=== PATIENT | female | born 1955 | race Caucasian/White ===

== ENCOUNTER 2018-05-09 09:03 | Day surgery (SDC) | payer BC ==
[2018-05-09 10:49] LABS: EOS # 0.1 K/uL (0.0-0.7); EOS % 2.7 % (0.0-4.0); HEMOGLOBIN 14.6 g/dL (11.0-16.0); LYMPH # 1.9 K/uL (1.0-4.3); LYMPH % 38.2 % (20.0-40.0); MEAN CELL VOLUME 84.3 fL (81.0-99.0); MEAN CORPUSCULAR HEMOGLOBIN 27.4 pg (27.0-31.0); MEAN CORPUSCULAR HGB CONC 32.5 g/dL (33.0-37.0); MEAN PLATELET VOLUME 8.2 fL (7.2-11.7); MONO # 0.4 K/uL (0.0-0.8); MONO % 8.9 % (0.0-10.0); NEUT # 2.4 K/uL (1.8-7.0); NEUT % 49.2 % (50.0-75.0); NRBC % 0.1 % (0.0-2.0); RBC 5.32 Mil/uL (3.80-5.20); RED CELL DISTRIBUTION WIDTH 14.4 % (11.5-14.5); WHITE BLOOD COUNT 4.9 K/uL (4.8-10.8)
[2018-05-09 10:56] LABS: PROTHROMBIN TIME 11.3 SECONDS (9.7-12.2)
[2018-05-09 11:00] LABS: SQUAMOUS EPITHIAL 2 /hpf (0-5); URINE BACTERIA OCC (<OCC); URINE BILIRUBIN NEGATIVE (NEGATIVE); URINE BLOOD 3+ (NEGATIVE); URINE CLARITY Hazy (Clear); URINE COLOR Amber (YELLOW); URINE GLUCOSE (UA) NORMAL (Normal); URINE LEUKOCYTE ESTERASE NEG Leu/uL (Negative); URINE PROTEIN 2+ mg/dL (NEGATIVE); URINE UROBILINOGEN NORMAL mg/dL (0.2-1.0)
[2018-05-09 11:03] LABS: ALB/GLOB RATIO 1.5 (1.0-2.1); ALBUMIN 4.7 g/dL (3.5-5.0); ALT/SGPT 25 U/L (9-52); AST/SGOT 31 U/L (14-36); BLOOD UREA NITROGEN 16 mg/dL (7-17); CALCIUM 9.3 mg/dl (8.6-10.4); GFR NON-AFRICAN AMERICAN > 60
--- NOTE | 2018-05-09 12:25 | CT ---
Date of service: 05/09/2018 PROCEDURE: CT Abdomen and Pelvis without intravenous contrast HISTORY: hematuria COMPARISON: Not available TECHNIQUE: Without contrast.. Contrast dose: 0 Radiation dose: Total exam DLP = 1194.61 mGy-cm. This CT exam was performed using one or more of the following dose reduction techniques: Automated exposure control, adjustment of the mA and/or kV according to patient size, and/or use of iterative reconstruction technique. FINDINGS: LOWER THORAX: Unremarkable. LIVER: Normal size, contour and attenuation. Nonspecific 12 mm ovoid low-attenuation mass in the medial segment left hepatic lobe common nonspecific. No biliary dilatation. GALLBLADDER AND BILE DUCTS: Unremarkable. PANCREAS: Unremarkable. No gross lesion or ductal dilatation. SPLEEN: Unremarkable. ADRENALS: Unremarkable. No mass. KIDNEYS AND URETERS: No mass, calculus or hydronephrosis. No hydroureter or ureteral calculus. VASCULATURE: Unremarkable. No aortic aneurysm. There is mild atherosclerotic calcification of the abdominal aorta. BOWEL: Mild sigmoid diverticulosis without evidence of diverticulitis. No bowel obstruction. No other abnormal bowel loops. APPENDIX: Unremarkable. Normal appendix. PERITONEUM: Unremarkable. No free fluid. No free air. LYMPH NODES: No retroperitoneal or pelvic lymphadenopathy. There are numerous shotty subcentimeter nodes in the small bowel mesenteric, nonspecific. Few shotty subcentimeter nodes are also seen medial to the cecum/ascending colon. Findings may reflect mesenteric adenitis. BLADDER: Unremarkable. REPRODUCTIVE: Prior hysterectomy. BONES: No acute fracture. OTHER FINDINGS: None. IMPRESSION: No evidence of urinary calculus or urinary tract obstruction. Shotty lymph nodes in the small bowel mesenteric and medial to the cecum/ascending colon. Nonspecific though this may reflect mesenteric adenitis. Incidental 12 mm ovoid low-attenuation mass in the medial segment of the left hepatic lobe. No other significant abnormality.
--- NOTE | 2018-05-09 13:15 | C.PDOC ---
History Of Present Illness 63 y/o female presents to the ED with complaints of hematuria for 1 week. She called her urologist, who referred patient to the ED for evaluation. Otherwise patient denies any dysuria, frequency, urinary incontinence, abdominal pain, nausea, vomiting, or diarrhea. Patient has no fevers or chills. Time Seen by Provider: 05/09/18 09:55 Chief Complaint (Nursing): Female Genitourinary History Per: Patient History/Exam Limitations: no limitations Onset/Duration Of Symptoms: Days (x6) Current Symptoms Are (Timing): Still Present Associated Symptoms: Urinary Symptoms Abnormal Vaginal Bleeding: No Past Medical History Reviewed: Historical Data, Nursing Documentation, Vital Signs Vital Signs: Last Vital Signs Temp 98.3 F 05/09/18 13:09 Pulse 88 05/09/18 13:09 Resp 18 05/09/18 13:09 BP 107/65 05/09/18 13:09 Pulse Ox 100 05/09/18 13:09 - Medical History PMH: HTN Other Surgeries: Partial hysterectomy, Breast fibroid removal Family History: States: Unknown Family Hx - Social History Hx Alcohol Use: No Hx Substance Use: No - Immunization History Hx Tetanus Toxoid Vaccination: Yes Hx Influenza Vaccination: Yes Hx Pneumococcal Vaccination: Yes Review Of Systems Except As Marked, All Systems Reviewed And Found Negative. Constitutional: Negative for: Fever, Chills Cardiovascular: Negative for: Chest Pain Respiratory: Negative for: Shortness of Breath Gastrointestinal: Negative for: Nausea, Vomiting, Abdominal Pain, Diarrhea Genitourinary: Positive for: Hematuria. Negative for: Dysuria, Frequency, Incontinence, Pelvic Pain Musculoskeletal: Negative for: Back Pain Neurological: Negative for: Weakness, Numbness Physical Exam - Physical Exam Appears: Non-toxic, No Acute Distress Skin: Normal Color, Warm Head: Atraumatic, Normacephalic Eye(s): bilateral: Normal Inspection, PERRL, EOMI Oral Mucosa: Moist Neck: Normal ROM Chest: Symmetrical Cardiovascular: Rhythm Regular, No Murmur Respiratory: Normal Breath Sounds, No Accessory Muscle Use, Other (No respiratory distress) Gastrointestinal/Abdominal: Soft, No Tenderness, No Distention Extremity: Bilateral: Atraumatic, Normal Color And Temperature Neurological/Psych: Oriented x3, Normal Speech ED Course And Treatment - Laboratory Results Result Diagrams: 05/09/18 10:40 05/09/18 10:40 Lab Results: PT 11.3 SECONDS (9.7-12.2) 05/09/18 10:40 INR 1.0 05/09/18 10:40 APTT 33 SECONDS (21-34) 05/09/18 10:40 Total Bilirubin 0.8 mg/dL (0.2-1.3) 05/09/18 10:40 AST 31 U/L (14-36) 05/09/18 10:40 ALT 25 U/L (9-52) 05/09/18 10:40 Alkaline Phosphatase 101 U/L (38-126) 05/09/18 10:40 Total Protein 7.8 g/dL (6.3-8.3) 05/09/18 10:40 Albumin 4.7 g/dL (3.5-5.0) 05/09/18 10:40 Globulin 3.1 gm/dL (2.2-3.9) 05/09/18 10:40 Albumin/Globulin Ratio 1.5 (1.0-2.1) 05/09/18 10:40 Urine Color Erinn (YELLOW) 05/09/18 10:40 Urine Clarity Hazy (Clear) 05/09/18 10:40 Urine pH 6.0 (5.0-8.0) 05/09/18 10:40 Ur Specific [place] 1.018 (1.003-1.030) 05/09/18 10:40 Urine Protein 2+ mg/dL (NEGATIVE) H 05/09/18 10:40 Urine Glucose (UA) Normal mg/dL (Normal) 05/09/18 10:40 Urine Ketones Negative mg/dL (NEGATIVE) 05/09/18 10:40 Urine Blood 3+ (NEGATIVE) H 05/09/18 10:40 Urine Nitrate Negative (NEGATIVE) 05/09/18 10:40 Urine Bilirubin Negative (NEGATIVE) 05/09/18 10:40 Urine Urobilinogen Normal mg/dL (0.2-1.0) 05/09/18 10:40 Ur Leukocyte Esterase Neg Lupe/uL (Negative) 05/09/18 10:40 Urine WBC (Auto) 7 /hpf (0-5) H 05/09/18 10:40 Urine RBC (Auto) 1133 /hpf (0-3) H 05/09/18 10:40 Ur Squamous Epith Cells 2 /hpf (0-5) 05/09/18 10:40 Urine Bacteria Occ (<OCC) H 05/09/18 10:40 O2 Sat by Pulse Oximetry: 100 (RA) Pulse Ox Interpretation: Normal - CT Scan/US CT Abdomen/Pelvis Other Rad Studies (CT/US): Read By Radiologist, Radiology Report Reviewed CT/US Interpretation: Accession No. : [id number]. Patient Name / ID : KAMI BHAT / [id number]. Exam Date : 05/09/2018 11:43:08 ( Approved ). Study Comment : Sex / Age : F / 63Y. Creator : Marvin Painter MD. Dictator : Marvin Painter MD. Well Service Derrick Worker : First Front Ventilator : Marvin Painter MD. Approver2 : Report Date : 05/09/2018 12:21:47. My Comment : . Date of service: 05/09/2018. PROCEDURE: CT Abdomen and Pelvis without intravenous contrast. HISTORY: hematuria. COMPARISON: Not available. TECHNIQUE: Without contrast.. Contrast dose: 0. Radiation dose: Total exam DLP = 1194.61 mGy-cm. This CT exam was performed using one or more of the following dose reduction techniques: Automated exposure control, adjustment of the mA and/or kV according to patient size, and/or use of iterative reconstruction technique. FINDINGS: LOWER THORAX: Unremarkable. LIVER: Normal size, contour and attenuation. Nonspecific 12 mm ovoid low-attenuation mass in the medial segment left hepatic lobe common nonspecific. No biliary dilatation. GALLBLADDER AND BILE DUCTS: Unremarkable. PANCREAS: Unremarkable. No gross lesion or ductal dilatation. SPLEEN: Unremarkable. ADRENALS: Unremarkable. No mass. KIDNEYS AND URETERS: No mass, calculus or hydronephrosis. No hydroureter or ureteral calculus. VASCULATURE: Unremarkable. No aortic aneurysm. There is mild atherosclerotic calcification of the abdominal aorta. BOWEL: Mild sigmoid diverticulosis without evidence of diverticulitis. No bowel obstruction. No other abnormal bowel loops. APPENDIX: Unremarkable. Normal appendix. PERITONEUM: Unremarkable. No free fluid. No free air. LYMPH NODES: No retroperitoneal or pelvic lymphadenopathy. There are numerous shotty subcentimeter nodes in the small bowel mesenteric, nonspecific. Few shotty subcentimeter nodes are also seen medial to the cecum/ascending colon. Findings may reflect mesenteric adenitis. BLADDER: Unremarkable. REPRODUCTIVE: Prior hysterectomy. BONES: No acute fracture. OTHER FINDINGS: None. IMPRESSION: No evidence of urinary calculus or urinary tract obstruction. Shotty lymph nodes in the small bowel mesenteric and medial to the cecum/ascending colon. Nonspecific though this may reflect mesenteric adenitis. Incidental 12 mm ovoid low-attenuation mass in the medial segment of the left hepatic lobe. No other significant abnormality. Medical Decision Making Medical Decision Making: Initial Plan: --CMP, CBC, coags --Blood type/screen --UA, Urine culture --CT Abdomen/Pelvis ordered w/wo contrast Progress/Updates: Labs reviewed. 12:[address] Speedy Clark, patient accepted for admission for same day surgery. Disposition - Disposition Disposition: HOSPITALIZED Disposition Time: 13:00 Condition: STABLE - Clinical Impression Clinical Impression: Hematuria - Scribe Statement The provider has reviewed the documentation as recorded by the Murali Etienne Provider Attestation: All medical record entries made by the Murali were at my direction and personally dictated by me. I have reviewed the chart and agree that the record accurately reflects my personal performance of the history, physical exam, medical decision making, and the department course for this patient. I have also personally directed, reviewed, and agree with the discharge instructions and disposition. Decision To Admit - Pt Status Changed To: Hospital Disposition Of: SDS- Endo,OR,Cath,IR - . Bed Request Type: Same Day Surgery Admitting Physician: Bridger Clark Patient Diagnosis: Hematuria
[2018-05-09] MEDS ORDERED: HYDROmorphone 0.5 mg/0.5 ml ISec IVP PRN (15:50)
[2018-05-09] MEDS ORDERED: Iohexol 240 (50 ml) ONE (16:09)
[2018-05-09] MEDS ORDERED: cefTRIAXone 1 gm 1 GM/100 ML BAG IVPB ONE (16:09)
[2018-05-09] MEDS ORDERED: Midazolam 2 MG/2 ML VIAL ONE (16:11)
[2018-05-09] MEDS ORDERED: Propofol 10 mg/ml Inj (20 ML) ONE ×2 (16:12→16:38)
[2018-05-09] MEDS ORDERED: Iodixanol 320 MG/ML 200 ML BOTTLE IV ONE (16:34)
[2018-05-09 18:40] VITALS: BP 136/70; PULSE 89; RESP 18; TEMP 98; O2SAT 100
--- NOTE | 2018-05-10 15:05 | RAD ---
Date of service: 05/09/2018 PROCEDURE: Intraoperative fluoroscopy HISTORY: HEMATURIA LEFT KIDNEY COMPARISON: Not available TECHNIQUE: Intraoperative fluoroscopy was provided for bilateral retrograde pyelo ureteral atrophy total time of fluoroscopy was 21.7 sec. Cumulative dose was 0.53861 mGy meter squared. FINDINGS: Multiple fluoroscopic spot films are submitted demonstrating retrograde opacification of the ureters and pelvicaliceal system of both kidneys. IMPRESSION: Fluoroscopy provided.
--- NOTE | 2018-05-23 06:04 | OP ---
PROCEDURE DATE: 05/09/2018 PREOPERATIVE DIAGNOSIS: Gross hematuria and voiding dysfunction. POSTOPERATIVE DIAGNOSIS: Gross hematuria and voiding dysfunction, no evidence of bleeding in the bladder, but significant evidence that there is bleeding from the left urethral orifice. PROCEDURES: Exam under anesthesia, cystoscopy, bilateral retrograde pyelogram. COMPLICATIONS: There were no complications. UROLOGY OPERATIVE FINDINGS: 1. Normal bladder mucosa. 2. There is gross blood from the left kidney. 3. Right kidney none. 4. Retrograde pyelogram despite the fact that I see blood physically from the left kidney, I do not see any filling defect or source of bleeding. I do not see any . I do not see any signs of NAD malformation. I do not see any abnormality, I do not even see papillary necrosis (see below my addendum and my plan and recommendations). Of significant note, I just want to put in the chart that, as I am dictating now, I remember the patient extremely well on I'm just in medical records going through the records. The procedure itself was done on 05/09/2018 and I dictated at the time, much of this got cut off or whatever from a phone call. But it is very fresh in my mind. INDICATIONS: See history and physical for further detail. A very pleasant lady who presented with gross hematuria. I saw and immediately brought into the hospital as quickly as possible. She has the same history 10 years ago and then it just stopped bleeding spontaneously and it was never resolved according to her where she presented with gross hematuria. So when we spoke to her, we brought her into the hospital as quickly as possible for the above listed procedure, which is the exam under anesthesia cystoscopy, and retrograde pyelogram. See my addendum at the end. DESCRIPTION OF PROCEDURE: After obtaining informed consent, the patient was placed on the table. Routine monitors were placed. We did a time-out to confirm the patient and positioning. Antibiotic prophylaxis used. We introduced the cystoscope via urethra, stat urine sample was sent out for analysis, culture and cytology. Associated with gross hematuria. Bladder mucosa I do not see any bladder lesions anywhere. The bladder was relatively normal, now of significance on the right side we see urethral ____ see it clear. On the left side we see gross hematuria, I took a couple of pictures that I saved, I captured them. Now we did a retrograde pyelogram, there is no filling defect that are obvious. From ___ there is no obvious papillary necrosis. There is no obvious NAD malformation, nothing obvious on this retrograde, no extravasation or like. Films are submitted for the radiologist. The bladder was empty. The scope was removed. The patient tolerated without complication. On exam the patient has normal external genitalia, No palpable rectal masses. ADDENDUM: which happened 10 years ago and happens again now. The patient is worried. I brought her in as quickly as possible, she's not delayed at all in her care and workup. Of significance though, we need to do further tests, we need to test her. She says she is not sickle cell or sickle cell trait and she does not have sickle cell anemia. The possibility for diabetes, papillary necrosis, gross hematuria, the possibility is there multi we have to see if there is no malignancy. As quickly as we can we are going to get the patient's MRI and we will get her some plasma electrophoresis. Follow up with Hematology. Of note, today's CT scan is negative. See further details to follow. Berny Clark MD
== END 2018-05-09 18:45 | disposition home or self-care (01) ==
LOC: C.ER 09:03 → C.SDS 12:33
PROVIDERS: ATTEND Urology
DX: R31.0 Gross hematuria (principal); I10 Essential (primary) hypertension
CPT/HCPCS: 52005; 74176; 80053; 81001; 85025; 85610; 85730; 86850; 86900; 87086; 99285; C1758; J0696; Q9966